=== PATIENT | male | born 1965 | race Caucasian/White ===

== ENCOUNTER 2019-10-18 14:21 | Emergency (ER) | payer SELFPAY ==
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
--- NOTE | ~2019-10-18 | CT_ITS ---
EXAMINATION: CT cervical spine wo con DATE: 10/18/2019 16:11 INDICATION: Neck pain TECHNIQUE: Computed tomography (CT) of the cervical spine was performed without intravenous contrast. The dose-length product (DLP) was 374.10 mGy-cm. Automated exposure control and iterative reconstruc tion technique were employed. COMPARISON: None FINDINGS: There is no fracture. There are 2 mm of retrolisthesis of C3 on C4. There is fusion at C4-5 . The odontoid is intact. There is mild loss of intervertebral disc space height at C5-6. Small degen erative osteophytes project from the anterior endplates of multiple vertebral bodies. The prevertebra l soft tissues are normal. IMPRESSION: 1. No fracture. Reviewed, dictated and finalized at location A. IMPRESSION: 1. No fracture.
[2019-10-18 14:31] VITALS: BP 158/92; PULSE 77; RESP 19; TEMP 37.1; O2SAT 100
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
[2019-10-18 15:21] LABS: Basophils Absolute Auto 0.1 K/mm3 (0.0-0.1); Basophils Percent Auto 0.5 % (0.2-1.2); Eosinophils Percent Auto 0.3 % (0-4.4); Hematocrit 44.5 % (42.0-52.0); Immature Granulocyte Absolute 0.03 K/mm3 (0.00-0.031); Immature Granulocyte Percent A 0.2 % (0-0.5); Lymphocytes Absolute Auto 1.04 K/mm3 (0.9-3.2); Lymphocytes Percent Auto 8.5 % (18.3-44.2); Mean Corpuscular HGB Conc 33.7 g/dl (32-36); Mean Platelet Volume 9.7 fl (7.4-10.4); Monocytes Absolute Auto 0.5 K/mm3 (0.1-0.6); Monocytes Percent Auto 3.8 % (2.6-8.5); Neutrophils Absolute Auto 10.6 K/mm3 (1.3-6.7); Neutrophils Percent Auto 86.7 % (45.5-73.1); Platelet Count Result 224 k/mm3 (150-375); Red Cell Distribution Width 12.5 % (11.5-14.5); White Blood Count 12.2 K/mm3 (4.5-10.0)
[2019-10-18 15:33] LABS: Alanine Aminotransferase 13 U/L (4-50); Albumin Level 3.9 g/dL (3.5-5.1); Alkaline Phosphatase 71 U/L (38-126); Aspartate Amino Transferase 21 U/L (17-59); Bilirubin,Total 0.6 mg/dL (0.2-1.3); Blood Urea Nitrogen 15 mg/dL (9-20); Calcium 8.3 mg/dL (8.4-10.2); Carbon Dioxide 28 mmol/L (22-30); Chloride 104 mmol/L (98-107); Estimated Glomerular Filt Rate > 60; Glucose 149 mg/dL (75-110); Potassium 3.8 mmol/L (3.4-5.0); Sodium 137 mmol/L (137-145)
== END 2019-10-18 17:01 | disposition home or self-care (01) ==
PROVIDERS: Emergency Medicine Emergency Medical Services; Emergency Provider Emergency Medicine
DX: S09.90XA Unspecified injury of head, initial encounter (principal); S20.212A Contusion of left front wall of thorax, initial encounter; S16.1XXA Strain of muscle, fascia and tendon at neck level, initial encounter; V86.55XA Driver of 3- or 4- wheeled all-terrain vehicle (ATV) injured in nontraffic accident, initial encounter
CPT/HCPCS: 36415; 71260; 72125; 74177; 80053; 85025; 96374; 99284; J0131; Q9967

== ENCOUNTER 2025-04-29 04:08 | Day surgery (SDC) | payer OTHER, SELFPAY ==
--- OUTSIDE RECORDS SUMMARY | 2023-12-26 19:00 | XMS_ITS | Continuity of Care Document ---
Author Organization [facility] Address [address] [place] [address] Phone Care Team Providers Care Handy Worker Name Role Phone Jigar Pablo MD Unavailable Unavailable Procedures Procedure Date SCREENING COLONOSCOPY (NOT HIGH RISK) Dc Advance Directives Directive Yes / No Effective Date File Name No Information Encounters Encounter Description Practice Location Reason(s) For Visit Diagnoses Date Provider Providers Copied on Encounter [facility], [address], [place], [place], [id number], [place] tel:[phone] [facility] [place] No Information Bev Kimball. [address], [place], [address], [place]. tel:[phone] Referring Provider: Altagracia Nguyễn, [address] [place] [address], [address]. tel:[phone] Family History Family Member Type Diagnosis Age At Onset No Information Payers Payer name Insurance type Covered green party ID Authoriza tion(s) [facility] CI [id number] Social History Type Description Quantity Date Captured Comments Sex Male Smoking Status No Information Chief Complaint And Reason For Visit No Information Reason For Referral Reason For Referral No Information History Of Present Illness Encounter Date Complaint History Of Prese nt Illness No Information Functional Status Date Functional Assessmen t No Information Instructions Date Instruction Additional Infor mation No Information Assessments Type Assessment Date No Information Patient Care Teams Name Effective Dates (start - stop) Status Members No Information
[2025-04-14 10:15] VITALS: BMI 31.6
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
--- OUTSIDE RECORDS SUMMARY | 2025-04-29 04:12 | XMS_ITS | Clinical Summary ---
Author Organization [facility] Address [address] [place] [address] Care Team Providers Care Senior Test Engineer Name Role Phone Isaac Yee MD Primary Care Provider Allergies Active Allergy Reactions Criticality Noted Date Comments Hydrochlorothiazide Shortness of Breath,Rash,Palpitation s High 12/06/2021 Sulfa Antibiotics Palpitations,Rash High 02/25/2009 Sulfamethoxazole-Trimethoprim Chest pressure,Rash High 04/20/2009 Medications amLODIPine (NORVASC) 10 MG tablet Take 1 tablet (10 mg total) by mouth daily. Active valsartan (DIOVAN) 160 MG tablet Take 1 tablet (160 mg total) by mouth daily. Active SV VITAMIN D3 50 MCG Cap Take 1 capsule by mouth daily. 4 Active oxyCODONE-aceta minophen (PERCOCET) 7.5-325 MG tablet Take 1 tablet by mouth every 6 (six) hours as needed. Active famotidine (PEPCID) 20 MG tablet Take 1 tablet (20 mg total) by mouth. Once daily, sometimes bid Active polyethylene glycol (GLYCOLAX) 17 GM/SCOOP powder Take 17 g by mouth. Prn 4 Active Social History Tobacco Use Types Packs/Day Years Used Date Smoking Tobacco: Every Day Cigarettes Smokeless Tobacco: Never Tobacco Cessation:Ready to Q uit: Not Asked; Counseling Given: Not Answered Alcohol Use Standard Drinks/Week Comments Yes 0 (1 standard drink = 0.6 oz pur e alcohol) social Sex and Gender Information Value Date Recorded Sex Assigned at Male 08/20/2024 2:15 PM SHARED SERVICES AND OUTSOURCING MANAGER Legal Sex Male 4:45 PM CDT Gender Identity Not on file Sexual Orientation Not on file Last Filed Vital Signs Vital Sign Reading Time Taken Comments Blood Pressure 124/68 08/20/2024 3:26 PM SHARED SERVICES AND OUTSOURCING MANAGER Pulse 73 08/20/2024 3:26 PM SHARED SERVICES AND OUTSOURCING MANAGER Temperature 36.6 C (97.9 F) 08/20/2024 3:26 PM SHARED SERVICES AND OUTSOURCING MANAGER Respiratory Rate 16 08/20/2024 3:26 PM SHARED SERVICES AND OUTSOURCING MANAGER Oxygen Saturation 100% 08/20/2024 3:26 PM SHARED SERVICES AND OUTSOURCING MANAGER Inhaled Oxygen Concentration - - Weight 102.6 kg (226 lb 3.2 oz) 08/20/2024 3:26 PM SHARED SERVICES AND OUTSOURCING MANAGER Height 175.3 cm (5' 9) 08/20/2024 3:26 PM SHARED SERVICES AND OUTSOURCING MANAGER Body Mass Index 33.4 08/20/2024 3:26 PM SHARED SERVICES AND OUTSOURCING MANAGER Plan of Treatment Upcoming Encounters Date Type Department Care Team (Late st Contact Info) Description 04/29/2025 10:00 AM CDT Appointment [facility] [address] [place] [address] Isaac Yee MD [address] [address] Health Maintenance Due Date Last Done Comments Colorectal Cancer Screening Colonoscopy (10 Years) 1965 Annual Physical 1968 Pneumococcal Vaccine: 50+ Years (1 of 2 - PCV) 1984 Zoster Vaccines (1 of 2) 2015 COVID-19 Vaccine (3 - 2024-2 6 season) 2025 01/13/2022, 12/16/2021 DTaP, Tdap and Td Vaccines ( 2 - Td or Tdap) 11/22/2031 11/21/2021 Hepatitis C Completed 11/10/2008 Meningococcal B Vaccine Aged Out No l onger eligible based on patient's age to complete this topic Meningococcal Vaccine Aged Out No laura dennise eligible based on patient's age to complete this topic RSV Immunizations Under 20 Months Aged Out No longer eligible b ased on patient's age to complete this topic Insurance [facility] Care Teams Senior Test Engineer Relationship Specialty Start Date End Date Isaac Yee MD [address] [address] PCP - General INTERNAL MEDICINE 04/02/25
--- OUTSIDE RECORDS SUMMARY | 2025-04-29 04:13 | XMS_ITS | Patient Health Record ---
Author Organization [facility] Address [address] [facility] [address] [place] [address] Care Team Providers Care Shove Up Name Role Phone Ashley GONZALEZ, Altagracia Primary Care Provider Dean Escoto MD, Gene Unavailable [phone] Reason For Referral No Information Medications Medication SIG (Take, Route, Frequency, Duration) Notes Start Date End Date Status Wellbutrin SR 150 MG Oral Active Protonix 40 MG Oral Activ e OXYCODONE HCL CAPSULE *please review for potential update for e-prescription and drug interaction check* Active Aleve 220 MG Oral Active [place] 5-325 MG Take 1 tab po q 4h, may increase to 2 tabs po q 6h prn severe pain Oral 07/01/2018 Active Problems Problem Type SNOMED Code ICD Code Onset Dates Problem Status W/U Status Risk Notes Problem Lateral epicondylitis (653634865) Lateral epicondyliti s, right elbow (M77.11) 05/20/2018 Active confirmed Problem Pain in right arm (023298951) Pain in right arm (M79.601) 05/20/2018 Active confirmed Plan Of Treatment No Information Insurance Providers Payer Name Payer Address Payer Phone Subscriber Number Group Number Insured Name Patient Relationship to Insured Coverage Start Date Coverage End Date [facility] [id number] [address] [place] [address] [id number] [place] RAYA Self - patient is the insured 9 Medical (General) History Surgical History Surgery Date(Month/Year) Carpal Tunnel Surgery-Left, Carpal Tunnel Surgery- Right, Hand Surgery- Left, Hand Surgery- Right, Knee Arthroscopy- Left, Knee Arthroscopy- Right PAST SurgHX Till 05/20/2018
[2025-04-29 13:41] VITALS: BP 135/85; PULSE 67; RESP 18; TEMP 36.5; O2SAT 100; BMI 31.7
[2025-04-29] MEDS: LACTATED RINGERS 1,000 ML 150 ML IV CONT (14:00)
--- NOTE | 2025-04-29 14:11 | PM.HPGS ---
History of Present Illness History of Present Illness Consent: Risks, benefits, and alternatives have been discussed and questions answered. Patient agrees to proceed with procedure. Chief complaint: Gastro-esophageal reflux disease without esophagit Narrative: Eric Andrade is a 59 year old male here for egd, h/o gerd on famotidine prn Review of Systems Review of Systems: All systems reviewed & are unremarkable except as noted in HPI and below PMFSH Past Medical History Medical History (Updated 04/29/25 @ 14:11 by Inder Amezquita MD) GERD (gastroesophageal reflux disease) Social History Social History Smoking status: Current every day smoker Tobacco type: cigarettes Alcohol intake: current Drinks per week: 30 Alcohol use details: beer Substance use type: does not use Living arrangements: with family Gender identity (if verbalized by the patient): Male Spiritual care concerns: No Meds Home Medications and Allergies Home Medications ?Medication ?Instructions ?Recorded ?Confirmed ?Type meloxicam 15 mg tablet 15 mg PO DAILY #10 tabs 10/18/19 04/29/25 Rx amlodipine 10 mg tablet 10 mg PO DAILY 04/14/25 04/29/25 History oxycodone-acetaminophen 7.5 mg-325 1 tablet PO Q6H PRN pain 04/14/25 04/29/25 History mg tablet valsartan 160 mg tablet 160 mg PO DAILY 04/14/25 04/29/25 History Allergies Allergy/AdvReac Type Severity Reaction Status Date / Time Sulfa (Sulfonamide Allergy Unknown Verified 04/29/25 13:40 Antibiotics) sulfamethoxazole (From Allergy Unknown Verified 04/29/25 13:40 Bactrim) trimethoprim (From Bactrim) Allergy Unknown Verified 04/29/25 13:40 Vital Signs Vital Signs - 24 hr 04/29/25 13:41 Temperature 97.7 F Pulse Rate 67 Respiratory Rate 18 Blood Pressure 135/85 Pulse Oximetry 100 Oxygen Delivery Room Air Exam Const: General: comfortable and no acute distress HENMT: Face/Nose/Sinus: Normal nares present Eyes: General: appearance normal, both eyes and all related structures Neck: Neck: no JVD Resp: Auscultation: clear to auscultation bilaterally Cardio: Rate: regular rate Rhythm: regular rhythm GI: Inspection: non-distended GI Palp: Yes Soft to palpation Skin: General skin exam: normal color Extrem: General: normal to inspection Psych: Mental Status: mental status grossly normal Assessment and Plan Assessment and plan (1) GERD (gastroesophageal reflux disease): Code(s): K21.9 - Gastro-esophageal reflux disease without esophagitis Status: Acute Assessment and Plan: egd
--- NOTE | 2025-04-29 14:40 | S_PTH ---
PATIENT: Eric Andrade LOC: [facility] X[facility]g#:[id number] AGE/SX: 59/M ROOM: RE04/29/[address]: Inder Amezquita MD : 1965 BED: DIS: 04/29/2025 SPEC #: [id number] RECD: 04/30/25 08:31 STATUS: RADHA RESharmaine #: [id number] DORON: 04/29/25 14:[address]: Inder Amezquita DEPT: [facility] Surgical RECD BY: Andressa Harris MLT, ([facility]) ENTERED: 04/30/25 08:31 SP TYPE: Surgical OTHR DR: Isaac YeeMD Tissues: A - Gastric Biopsy B - Esophageal Biopsy Procedures: Hematoxylin and Eosin Stain Gross and Microscopic Level 4 H.Pylori
[2025-04-29 14:47] VITALS: BP 147/116; PULSE 72; RESP 18; O2SAT 99
[2025-04-29 14:57] VITALS: BP 114/57; PULSE 56; RESP 18; O2SAT 99
[2025-04-29 15:07] VITALS: BP 115/68; PULSE 61; RESP 18; O2SAT 100
--- NOTE | 2025-05-25 18:38 | WPDANESEPPF ---
Anes - Initial Pre Proc Eval Procedure: Operation Date: 04/29/25 14:45 Proposed Procedures p Esophagogastroduodenoscopy - Inder Amezquita MD Date/Time: 05/25/25 18:38 Surgeon: Indre Amezquita MD Pre Op Diagnosis: Gastro-esophageal reflux disease without esophagit Patient Data Age: 60 Gender: M Height: 1.78 m Weight: 100.4 kg Last Vital Signs Temp 36.5 C 04/29/25 13:41 Pulse 61 04/29/25 15:07 Resp 18 04/29/25 15:07 BP 115/68 04/29/25 15:07 Pulse Ox 100 04/29/25 15:07 O2 Del Method Room Air 04/29/25 15:07 Allergies Allergy/AdvReac Type Severity Reaction Status Date / Time Sulfa (Sulfonamide Allergy Unknown Verified 04/29/25 13:40 Antibiotics) sulfamethoxazole (From Allergy Unknown Verified 04/29/25 13:40 Bactrim) trimethoprim (From Bactrim) Allergy Unknown Verified 04/29/25 13:40 Home Medications ?Medication ?Instructions ?Recorded ?Confirmed ?Type meloxicam 15 mg tablet 15 mg PO DAILY #10 tabs 10/18/19 04/29/25 Rx amlodipine 10 mg tablet 10 mg PO DAILY 04/14/25 04/29/25 History oxycodone-acetaminophen 7.5 mg-325 1 tablet PO Q6H PRN pain 04/14/25 04/29/25 History mg tablet valsartan 160 mg tablet 160 mg PO DAILY 04/14/25 04/29/25 History Patient hx anesthesia problems: none Family hx anesthesia problems: none Results Review: All pre-operative results and documents have been reviewed as part of the pre-operative evaluation. [facility] Past Medical History Medical History (Updated 04/29/25 @ 14:11 by Inder Amezquita MD) GERD (gastroesophageal reflux disease) Social History Social History Smoking status: Current every day smoker Tobacco type: cigarettes Alcohol intake: current Drinks per week: 30 Alcohol use details: beer Substance use type: does not use Living arrangements: with family Gender identity (if verbalized by the patient): Male Spiritual care concerns: No Anes - Eval Final PreProcedure Day of Procedure 05/25/25 18:38 Patient weight: obese ASA classification: III Emergent: no Anesthetic plan: proceed Anesthesia type and monitoring: general GIVS and standard monitoring Results Review: All pre-operative results and documents have been reviewed as part of the pre-operative evaluation. Informed Consent: The patient's anesthetic plan and its attendant risks and benefits were discussed with the patient/family/POA. Questions were solicited and answers provided to the satisfaction of the patient/family/POA.
== END 2025-04-29 15:18 | disposition home or self-care (01) ==
PROVIDERS: PCP Internal Medicine; Referring Provider Internal Medicine; Visit Provider Internal Medicine Gastroenterology
PROC: 0DJ08ZZ Inspection of Upper Intestinal Tract, Via Natural or Artificial Opening Endoscopic (ICD-10-PCS; CPT 43239; principal; 2025-04-29 14:45)
DX: K21.00 Gastro-esophageal reflux disease with esophagitis, without bleeding (principal); K22.70 Barrett's esophagus without dysplasia; K44.9 Diaphragmatic hernia without obstruction or gangrene; F17.210 Nicotine dependence, cigarettes, uncomplicated; Z79.891 Long term (current) use of opiate analgesic
CPT/HCPCS: 43239; 88305; 88342; J2003; J2704; J7120